=== PATIENT | male | born 1970 | race Caucasian/White ===

== ENCOUNTER 2023-01-26 15:03 | Emergency (ER) | payer MEDICAID, SELFPAY ==
[2023-01-26 15:08] VITALS: BP 114/59; PULSE 88; RESP 16; TEMP 37; O2SAT 99; BMI 21.4
--- NOTE | 2023-01-26 15:16 | ED_ITS ---
HPI - General Adult General Chief complaint: Overdose Stated complaint: FOUND UNRESP,NARCAN BY BYSTANDER W/GOOD RESULT Time Seen by Provider: 01/26/23 15:11 Source: patient, EMS, RN notes reviewed and old records reviewed Mode of arrival: EMS History of Present Illness [facility] narrative: 52-year-old male with no known past medical history presenting to ED via EMS s/p being found unresponsive by PD, given 4 mg of intranasal Narcan with positive result. Patient was awake and alert on EMS arrival. Patient refused vital signs/evaluation by EMS, requesting to be discharged from the ED upon arrival. Patient persistently denies any drug or alcohol use. Denies SI/HI, fall, injury or trauma. Onset (ago): minute(s) Related Data Allergies Allergy/AdvReac Type Severity Reaction Status Date / Time No Known Allergies Allergy Verified 01/26/23 15:08 [No Known Allergies*] Review of Systems Review of Systems: Constitutional: No Fever, No Chills, No Fatigue, No Malaise ENT/Mouth: No Ear Pain, No sore throat, No Rhinorrhea, No Swallowing Difficulty Eyes: No Eye Pain, No Swelling, No Redness Cardiovascular: No Chest Pain, No SOB Respiratory: No Cough, No Sputum, No Dyspnea Gastrointestinal: No Nausea, No Vomiting, No Diarrhea, No Constipation, No Abdominal pain Musculoskeletal: No joint pain, No Myalgias, No Joint Swelling Skin: No Skin Lesions, No rash Neuro: No Weakness, No Headache Psych: No Anxiety/Panic, No Depression, No SI/HI/AH/VH, No Social Issues Yes all other systems are reviewed and are negative Constitutional: Constitutional: Reports as per [facility] Past Medical History Attestation statement: The following information was validated with the patient. Source: old records reviewed Social History Social History Advance Directives: No Physical Exam ED Vital Signs: Vital Signs - 24 hr 01/26/23 15:08 Temperature 98.6 F Pulse Rate 88 Respiratory Rate 16 Blood Pressure 114/59 L Pulse Oximetry 99 Oxygen Delivery Method Room Air BMI result Body Mass Index 21.4 Const General: no acute distress and alert Orientation/consciousness: patient oriented x3 Limitations: no limitations HENMT Head: Yes normal to inspection and Yes atraumatic Ears: hearing grossly normal bilaterally General nose exam: Normal external nose present Face and sinus: Yes normal facial exam Eyes General: appearance normal, both eyes and all related structures Pupils: Equal, round and reactive pupils present EOM: EOMs intact bilaterally Neck Neck: Yes normal visual inspection and Yes no meningeal signs Resp Effort & Inspection: normal respiratory effort and no respiratory distress Cardio Rate: regular rate Heart sounds: S1 normal heart sound present and S2 normal heart sound present GI Inspection: Yes normal to inspection Palpation (GI): Soft to palpation, nontender, no guarding and not rigid Back/Spine/Pelvis Other: No midline cervical/thoracic/lumbar spinous tenderness/step-off or deformity Skin Rashes: no rashes Wounds: no wounds Neuro General: patient oriented x3, tone normal, moves all extremities, no meningeal signs and CN's II-XI intact bilaterally Cranial nerves: Yes CN's II-XII intact bilaterally and Yes Equal, round and reactive pupils present Extrem General: Yes normal to inspection Psych Thought content: suicidality and no homicidality Course Course Course Narrative: > 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 We from patient he immediately fell asleep. Is maintaining airway. Will continue to monitor for clinical sobriety -1537--patient evaluated by Recovery, did not really engage. Is not interested in detox. Will be discharged with Narcan to go. Patient has remained awake and alert since ED arrival. Tolerating p.o. -1546--patient awake and alert, sitting at edge of bed. Safe for discharge. Results discussed with patient including worrisome signs and symptoms and strict return precautions, and when to return to the emergency department. They verbalized understanding and feel safe for discharge at this time. Medical Decision Making Medical Decision Making [facility] Narrative: 52-year-old male with no known past medical history presenting to ED via EMS s/p being found unresponsive by PD, given 4 mg of intranasal Narcan with positive result. On exam vital signs stable, NAD, nontoxic appearing, awake and alert at this time, persistently refuses drug use. Denies SI/HI. No evidence of trauma or midline spinous tenderness. Moving all extremities. Concern for accidental overdose. Low suspicion for ICH/SAH or fractures Plan: Observe and re-evaluate for clinical sobriety/Narcan wear off Please refer to course for remaining clinical decision making, interpretation of labs/imaging results, and discussions with consultants and/or family members. Differential Diagnosis Differential Diagnoses: The differential diagnosis associated with the presentation includes As above Independent Historian Clinical information obtained from an independent historian. History obtained from or confirmed by: EMS External Record Review External record reviewed: Inpatient record, Office record, Outpatient record, Prior outpatient labs, Prior outpatient radiology, Primary care record and Outside ED record Tests considered The following testing was considered but not selected: As above Social Determinants Patient?s care significantly limited by Social Determinants of Health including: Low income and Alcoholism and drug addiction in family Discharge Plan Discharge Clinical Impression: Drug overdose Patient Disposition: Home, Self-Care Instructions: Adult Overdose (ED) Additional Instructions: AVOID DRUGS AND ALCOHOL THIS CAN KILL YOU. YOU ALMOST TODAY Have Narcan on you at all times Consider detox Follow-up with your doctor Referrals: [facility] [Provider Group] [facility] [Outside]
--- NOTE | 2023-01-26 16:33 | MHC.RECOVSUP ---
Met with pt in ED[facility] who is here for OD to complete SUDE. Pt informs he does not need to speak with me as he does not use any substances and has never OD before, pt was not willing to communicate or answer any further questions and wants to go home.
== END 2023-01-26 15:56 | disposition home or self-care (01) ==
PROVIDERS: Emergency Provider Emergency Medicine Emergency Medical Services
DX: T50.901A Poisoning by unspecified drugs, medicaments and biological substances, accidental (unintentional), initial encounter (principal); R40.4 Transient alteration of awareness; Y92.410 Unspecified street and highway as the place of occurrence of the external cause
CPT/HCPCS: 99282

== ENCOUNTER 2023-02-01 11:22 | Emergency (ER) | payer MEDICAID, SELFPAY ==
[2023-02-01 11:26] VITALS: BMI 25.8
--- NOTE | 2023-02-01 11:27 | ED_ITS ---
HPI - General Adult General Chief complaint: Overdose Stated complaint: OD,NARCAN W/GOOD RESULT,CALM BUT UPSET PER EMS Time Seen by Provider: 02/01/23 11:24 Source: patient, EMS and police Mode of arrival: ambulatory Limitations: other (not cooperative, ) History of Present Illness HPI narrative: 52-year-old male with no known past medical history presenting to ED via EMS s/p being found unresponsive by PD, given 8 mg of intranasal Narcan [employer] ith positive result. Patient was awake and alert on EMS arrival he was mad and didnt want to come in he was advised to get seen so he came by EMS. Patient refused vital signs/evaluation by EMS, requesting to be discharged from the ED upon arrival. Refusing a physical exam & refusing to answer ROS questions. Screaming so wears in the department, kicking and spitting. Patient persistently denies any drug or alcohol use. Denies SI/HI, fall, injury or trauma. Denies any medical complaints. Related Data Previous Rx's Medication Instructions Recorded naloxone 4 mg/actuation nasal 4 mg intranasal Q2M PRN opioid 02/01/23 spray (Narcan) overdose #2 ea Allergies Allergy/AdvReac Type Severity Reaction Status Date / Time No Known Allergies Allergy Verified 01/26/23 15:08 [No Known Allergies*] Review of Systems Review of Systems: Patient refusing to answer Yes Other [facility] Past Medical History Attestation statement: The following information was validated with the patient. Source: old records reviewed and nursing notes reviewed Physical Exam ED Vital Signs: BMI result Body Mass Index 25.8 Refusing vital signs. Appearance: Alert.? Oriented X3.? No acute distress.? Head: Normocephalic, atraumatic, no step-offs or deformities Eyes: Pupils equal, round and reactive to light.? Neck: Normal inspection.? CVS: Refuse Respiratory: No respiratory distress.? Abdomen: Refusing Skin: Skin warm and dry.? Normal skin color.? Extremities: No lower extremity edema.? 5/5 strength to bilateral upper and lower extremities Neuro: Oriented X 3.? No motor deficit.? No sensory deficit. Ambulating with steady gait normal coordination. Course Reevaluation(s) Reevaluation #1: Patient left ambulating with steady gait normal coordination. Told him you will be leaving against medical advice with home narcan states i dont give a fuck . Time: 11:33 Medical Decision Making Medical Decision Making [facility] Narrative: 1130 52-year-old male present with suspected opiate overdose uncooperative on arrival arrives with EMS and police. Refusing medical evaluation. Not suicidal or homicidal. Alert and oriented x4 On exam patient appears to be in no acute distress however refusing full physical examination. Combative, spitting, swearing, kicking. This is likely opiate overdose. No reports of trauma no signs of trauma. Unlikely traumatic injury to head, neck, chest, abdomen or pelvis based off patient history and limited exam. Plan is for observation, labs, substance use disorder evaluation however patient refusing and requesting to leave the department. No indication for Section 12 peer Differential Diagnosis Differential Diagnoses: The differential diagnosis associated with the presentation includes This is likely opiate overdose. No reports of trauma no signs of trauma. Unlikely traumatic injury to head, neck, chest, abdomen or pelvis based off patient history and limited exam. Admission/Observation Consideration of admission/observation: Escalation of care including admission/observation considered Unlikely External Record Review External record reviewed: Inpatient record, Outpatient record, Prior outpatient labs and Outside ED record Prescription Management I considered prescription management with: Other (Sending home with home Narcan) Social Determinants Patient?s care significantly limited by Social Determinants of Health including: Inadequate housing, Low income, Alcoholism and drug addiction in family, Problems related to primary support group, Unemployment, Problems related to employment and Other Social Determinant of Health Critical Care Time Critical Care Time Critical Care Time: No Discharge Plan Discharge Clinical Impression: Overdose Patient Disposition: Left Against Medical Advice Instructions: Adult Overdose (ED) Additional Instructions: Take your medications as prescribed. If you were prescribed antibiotics today, it is important that you take your medication to their entirety, do not skip any doses, do not finish them early. Follow-up with your primary care provider this week. Return to the emergency department with new or worsening symptoms. Such as fevers, chills, chest pain, shortness of breath, nausea, vomiting, dizziness, headache, vision changes, lethargy In case of emergency call 911 You decided to leave against medical advice risks include , respiratory distress. Return if you change your mind Prescriptions: New naloxone [Narcan] 4 mg/actuation spray,non-aerosol 4 mg intranasal Q2M PRN (Reason: opioid overdose) Qty: 2 0RF Rx Instructions: spray 1 dose into ONE nostril; alternate nostrils w each dose until help arr ifeanyi Referrals: ED Physician,Generic [Physician] - 2 days Stand Alone Forms: Against Medical Advice Interventions: ED Discharge Assessment Last Done: 02/01/23 11:29
== END 2023-02-01 11:37 | disposition left against medical advice (07) ==
PROVIDERS: Emergency Provider Student in an Organized Health Care Education/Training Program
DX: T50.901A Poisoning by unspecified drugs, medicaments and biological substances, accidental (unintentional), initial encounter (principal); R45.6 Violent behavior; Y92.9 Unspecified place or not applicable
CPT/HCPCS: 99282; 99283